=== PATIENT | male | born 1960 | race Caucasian/White ===

== ENCOUNTER 2022-06-03 08:01 | Day surgery (SDC) | payer OTHER ==
--- NOTE | 2022-06-03 07:44 | HP ---
DATE OF SURGERY: 06/03/2022 HISTORY OF PRESENT ILLNESS: The patient is a 61-year-old gentleman with no prior colonoscopy, positive Cologuard. No bloody stools. He denies any pain. His father had colon cancer. PAST MEDICAL HISTORY: Hypertension, arthritis. PAST SURGICAL HISTORY: None. MEDICATIONS: Metoprolol, lisinopril/hydrochlorothiazide. ALLERGIES: PENICILLINS. FAMILY HISTORY: Family history of colon cancer. SOCIAL HISTORY: No smoking or alcohol abuse. REVIEW OF SYSTEMS: Fourteen systems reviewed. No chest pain or palpitations. Other systems negative or noncontributory as above and per preadmission questionnaire. PHYSICAL EXAMINATION: Height 6'2". BMI 41. GENERAL: No acute distress. HEENT: Sclerae nonicteric. NECK: No JVD. CHEST: Equal excursion, nonlabored breathing. CVS: Regular rate and rhythm. ABDOMEN: Soft. No peritoneal signs. EXTREMITIES: No significant edema. NEURO: Alert, oriented, moving extremities symmetrically. No gross motor deficits noted. RECTAL: Deferred timed to endoscopy exam. PSYCH: Appropriate mood and affect. SKIN: Dry. IMPRESSION: Family history of colon cancer. History of positive Cologuard. He is need of screening colonoscopy as he has not had one previously. I feel the patient is a candidate. He was shown the risk sheet explained the procedure in detail including but not limited to bleeding or infection, risk of bowel injury or perforation possibly requiring further procedure, risk of missed or nondiagnosis or incomplete exam possibly requiring barium enema, other studies or procedures, general risk of anesthesia or sedation, risk of bowel prep but not limited to, consent obtained. Will proceed with colonoscopy under MAC anesthesia as an outpatient.
[2022-06-03] MEDS ORDERED: Lactated Ringers 1,000 ML IV ONE (08:30)
[2022-06-03] MEDS ORDERED: Lactated Ringers 1,000 ML IV SCH (09:00)
[2022-06-03] MEDS ORDERED: DIPRIVAN 200 MG/20 ML IV ONE ×2 (10:20→10:49)
[2022-06-03] MEDS ORDERED: Versed 2 MG/2 ML Injection ONE (10:20)
[2022-06-03] MEDS ORDERED: Zofran 4 MG/2 ML VIAL ONE (10:47)
[2022-06-03 11:57] VITALS: BP 102/66; PULSE 67; O2SAT 98
--- NOTE | 2022-06-03 14:13 | OP ---
SURGERY DATE/TIME: 06/03/2022 1041 PREOPERATIVE DIAGNOSIS: History of positive Cologuard, family history of colon cancer, need for colonoscopy. POSTOPERATIVE DIAGNOSES: 1) ASA Class II. 2) Colon polyps cecum and sigmoid. 3) Fair bowel prep. 4) Mild diverticulosis. PROCEDURES: 1) Colonoscopy to cecum. 2) Hot biopsy small early polyp versus hyperplastic lesion cecum. 3) Hot snare polypectomy small early polyps versus hyperplastic lesion sigmoid colon x2 or 3. 4) Hot snare polypectomy two proximal sigmoid colon polyps approximately 4 mm in size removed with hot snare polypectomy. SURGEON: Dr. Murray Blanc. ANESTHESIA: MAC. ESTIMATED BLOOD LOSS: Minimal. INDICATIONS: As noted above. Risks and benefits explained in detail but not limited to and consent obtained. DESCRIPTION OF PROCEDURE AND FINDINGS: The patient is taken to the endoscopy room. MAC anesthesia induced. After official time out and no disagreement with planned procedure, digital rectal exam did not reveal any rectal masses. Video colonoscope inserted and passed up through the tortuous sigmoid, descending, transverse and ascending colon around to the cecum. There was a small, little early raised lesion, early polyp or hyperplastic lesion removed with hot biopsy forceps in the cecum. Good hemostasis noted. Appendiceal orifice and valve photo documented. The scope is then carefully withdrawn over the next 12 minutes stopping in the sigmoid colon, proximal sigmoid colon and two polyps about 4 mm in size removed with hot snare polypectomy. Good hemostasis was noted. Two or three other small early polyps or hyperplastic lesion removed with hot biopsy forceps. Good hemostasis noted. He had a few small diverticula in his left colon. There were no signs of any large masses or obstructing lesions. The scope is withdrawn. Findings discussed with the family in the waiting room.
== END 2022-06-03 12:00 | disposition home or self-care (01) ==
LOC: SDC 08:01
PROVIDERS: ATTEND Surgery
DX: D12.5 Benign neoplasm of sigmoid colon (principal); R19.5 Other fecal abnormalities; Z80.0 Family history of malignant neoplasm of digestive organs; I10 Essential (primary) hypertension; K57.30 Diverticulosis of large intestine without perforation or abscess without bleeding
CPT/HCPCS: 82947; 93005; J2250; J2405; J2704